=== PATIENT | female | born 1970 | race Two or more races ===

== ENCOUNTER 2016-07-21 19:07 | Emergency (ER) | payer OTHER ==
[~2016-07-21] VITALS: Ht 154.9 cm; Wt 68.0 kg
[~2016-07-21 19:07] MED LIST: LEVO100T PO; METF500T4 PO; OMEP20TA PO
[2016-07-21 19:55] VITALS: BP 123/72
[2016-07-21] MEDS ORDERED: PRED20TA PO (20:48)
[2016-07-21] MEDS ORDERED: BENZ200C39 PO (20:48)
--- NOTE | 2016-07-21 20:48 | PHYS DOC ---
Past Medical History Past Medical History: Diabetes-Type II, Hypothyroid Additional Past Medical Histor: [place]'s disease Past Surgical History: No Surgical History Alcohol Use: None Drug Use: None Adult General Chief Complaint Chief Complaint: COUGH HPI HPI Patient is a 45 year old female presents emergency room with complaint of cough , subjective fevers, nasal congestion for approximately one week. Patient reports that she was treated by her primary care doctor this past week with azithromycin on the secondary illness. She states that it has not helped her upper respiratory symptoms. Patient has any history of heart or lung disease. She states she is a nonsmoker. She denies any ill contacts at home. She denies foreign travel, hospitalization within the past 90 days. Review of Systems Review of Systems Constitutional: Denies fever or chills [] Eyes: Denies change in visual acuity, redness, or eye pain [] HENT: Denies nasal congestion or sore throat [] Respiratory: Denies cough or shortness of breath [] Cardiovascular: No additional information not addressed in HPI [] GI: Denies abdominal pain, nausea, vomiting, bloody stools or diarrhea [] : Denies dysuria or hematuria [] Musculoskeletal: Denies back pain or joint pain [] Integument: Denies rash or skin lesions [] Neurologic: Denies headache, focal weakness or sensory changes [] Endocrine: Denies polyuria or polydipsia [] Allergies Allergies Allergies Coded Allergies Type Severity Reaction Last Updated Verified No Known Drug Allergies 04/26/14 No Physical Exam Physical Exam Constitutional: Well developed, well nourished, no acute distress, non-toxic appearance. [] HENT: Normocephalic, atraumatic, bilateral external ears normal, oropharynx moist, no oral exudates, clear rhinorrhea with boggy nasal mucosa. There is no trismus or hot potato speech. There is no posterior oropharyngeal erythema or swelling. Eyes: PERRLA, EOMI, conjunctiva normal, no discharge. [] Neck: Normal range of motion, no tenderness, supple, no stridor. There is no meningismus. There is bilateral anterior and posterior cervical lymphadenopathy. Cardiovascular:Heart rate regular rhythm, no murmur [] Lungs & Thorax: Bilateral breath sounds clear to auscultation [] Abdomen: Bowel sounds normal, soft, no tenderness, no masses, no pulsatile masses. [] Skin: Warm, dry, no erythema, no rash. [] Back: No tenderness, no CVA tenderness. [] Extremities: No tenderness, no cyanosis, no clubbing, ROM intact, no edema. [] Neurologic: Alert and oriented X 3, normal motor function, normal sensory function, no focal deficits noted. [] Psychologic: Affect normal, judgement normal, mood normal. [] Current Patient Data Vital Signs Vital Signs Date Time Temp Pulse Resp B/P Pulse Ox O2 Delivery O2 Flow Rate FiO2 07/21/16 19:55 98.2 90 18 97 Room Air 98.2 EKG EKG [] Radiology/Procedures Radiology/Procedures [] Course & Med Decision Making Course & Med Decision Making Pertinent Labs and Imaging studies reviewed. (See chart for details) [] Dragon Disclaimer Dragon Disclaimer This electronic medical record was generated, in whole or in part, using a voice recognition dictation system. Departure Departure Impression: Primary Impression: Upper respiratory infection Disposition: HOME, SELF-CARE Condition: GOOD Referrals: WILFREDO HARTMAN MD (PCP) Patient Instructions: Upper Respiratory Infection, Adult, [id number] Additional Instructions: 1. Use suem-[id number] Afrin twice a day for 3 days. 2. Take the medication as prescribed suppress the cough and the steroids to help minimize inflammation in the upper respiratory tract. 3. Follow-up with primary care doctor in 4-5 days if symptoms worsen. Scripts Prednisone 20 Mg Tablet2 Tab PO DAILY #5 TAB Prov:BILLIE CASTELLANOS 07/21/16 Benzonatate 200 Mg Capsule1 Cap PO TID ough #21 CAP Prov:BILLIE CASTELLANOS 07/21/16 BILLIE CASTELLANOS Jul 21, 2016 20:48
== END 2016-07-21 20:55 | disposition home or self-care (01) ==
LOC: ER 19:07
DX: J06.9 Acute upper respiratory infection, unspecified (principal); E03.9 Hypothyroidism, unspecified; E11.9 Type 2 diabetes mellitus without complications; E27.1 Primary adrenocortical insufficiency
CPT/HCPCS: 99283

== ENCOUNTER 2016-10-02 17:53 | Emergency (ER) | payer OTHER ==
[~2016-10-02 17:53] MED LIST changes: +BENZ200C39 PO; +PRED20TA PO
[2016-10-02 18:07] VITALS: BP 122/75
--- NOTE | 2016-10-02 18:41 | PHYS DOC ---
Past Medical History Past Medical History: Diabetes-Type II, Hypothyroid Additional Past Medical Histor: Perkins's disease Past Surgical History: Tubal ligation Alcohol Use: None Drug Use: None Adult General Chief Complaint Chief Complaint: FLANK PAIN [facility] HPI Patient is a 45 year old female presents emergency department with family member who is interpreting. As patient speaks [place]ese only. Patient woke about 5 :00 this morning with right lower pelvic pain that radiates into the lower back area. Patient states she's had burning with frequency of urination. She denies any blood being in the urine. She denies any fever, chills or any nausea vomiting. She did state she took ibuprofen 9:00 this morning which helped with her back pain and discomfort. She also states that she has some white vaginal discharge that is cottage cheese type. Review of Systems Review of Systems Constitutional: Denies fever or chills [] Eyes: Denies change in visual acuity, redness, or eye pain [] HENT: Denies nasal congestion or sore throat [] Respiratory: Denies cough or shortness of breath [] Cardiovascular: No additional information not addressed in HPI [] GI: Denies abdominal pain, nausea, vomiting, bloody stools or diarrhea [] : dysuria denies hematuria [] Musculoskeletal: Denies back pain or joint pain [] Integument: Denies rash or skin lesions [] Neurologic: Denies headache, focal weakness or sensory changes [] Allergies Allergies Allergies Coded Allergies Type Severity Reaction Last Updated Verified No Known Drug Allergies 04/26/14 No Physical Exam Physical Exam Constitutional: Well developed, well nourished, no acute distress, non-toxic appearance. [] HENT: Normocephalic, atraumatic, bilateral external ears normal, oropharynx moist, no oral exudates, nose normal. [] Eyes: PERRLA, EOMI, conjunctiva normal, no discharge. [] Neck: Normal range of motion, no tenderness, supple, no stridor. [] Cardiovascular:Heart rate regular rhythm, no murmur [] Lungs & Thorax: Bilateral breath sounds clear to auscultation []] Skin: Warm, dry, no erythema, no rash. [] Back: right lower back tenderness, no CVA tenderness. [] Extremities: No tenderness, no cyanosis, no clubbing, ROM intact, no edema. [] Neurologic: Alert and oriented X 3, normal motor function, normal sensory function, no focal deficits noted. [] Psychologic: Affect normal, judgement normal, mood normal. [] Vaginal exam: Speculum exam patient with thick yellow discharge with odor noted. Manual exam patient with no adnexal tenderness noted no CMT noted Current Patient Data Vital Signs Vital Signs Date Time Temp Pulse Resp B/P Pulse Ox O2 Delivery O2 Flow Rate FiO2 10/02/16 18:07 97.5 85 18 122/75 97 Room Air 97.5 Lab Values Laboratory Tests Test 10/02/16 17:36 10/02/16 18:20 POC Urine HCG, Qualitative Hcg negative (Negative) Urine Collection Type Unknown Urine Color Yellow Urine Clarity Cloudy Urine pH 7.5 Urine Specific [place] 1.010 Urine Protein Negativemg/dL (NEG-TRACE) Urine Glucose (UA) Negativemg/dL (NEG) Urine Ketones (Stick) Negativemg/dL (NEG) Urine Blood Negative (NEG) Urine Nitrite Negative (NEG) Urine Bilirubin Negative (NEG) Urine Urobilinogen Dipstick 1.0mg/dL (0.2 mg/dL) Urine Leukocyte Esterase Negative (NEG) Urine RBC 0/HPF (0-2) Urine WBC 0/HPF (0-4) Urine Squamous Epithelial Cells Mod/LPF Urine Bacteria Few/HPF (0-FEW) Microbiology 10/02/16 Wet Prep - Final, Complete EKG EKG [] Radiology/Procedures Radiology/Procedures [] Course & Med Decision Making Course & Med Decision Making Pertinent Labs and Imaging studies reviewed. (See chart for details) Urinalysis was negative for you to urinary tract infection. Wet prep was positive for bacterial vaginosis. Patient will be provided with Flagyl 500 mg twice day for the next 7 days. Since she was having dysuria she will be provided with Macrobid. Recommended plenty of fluids such as water and cranberry juice. Also recommended her to avoid coverages cocktail carbonate beverages citrus fruits caffeine and alcohol disease are all considered irritants to the bladder. Patient will be discharged home in stable condition since symptoms to return back to emergency department as been provided. Instructions treatment regimens and follow-up recommendations. All discharge instructions was provided through plant operator helper at bedside. [] Dragon Disclaimer Dragon Disclaimer This electronic medical record was generated, in whole or in part, using a voice recognition dictation system. Departure Departure Impression: Primary Impression: Bacterial vaginosis Additional Impression: Dysuria Disposition: 01 HOME, SELF-CARE Condition: STABLE Referrals: WILFREDO HARTMAN MD (PCP) Patient Instructions: Bacterial Vaginosis, Knbe-[id number]-Pwdx, Dysuria-Brief Additional Instructions: Urinalysis was negative for any urinary tract infection although since your having signs and symptoms of urinary frequency and pain with urination he we will be treated for a bacterial infection. You've also been treated for a bacterial vaginosis. You have also been tested for sexually transmitted infections. These results will be back in 3-4 days. If they are positive we will contact you by phone. Medication as prescribed. Drink plenty of fluids such as water and cranberry juice. Avoid cranberry juice cocktail carbonate beverages citrus fruits alcohol and caffeine as these are considered irritants to the bladder. Follow-up to primary care physician next 7-10 days. Return back to emergency prior signs symptoms of become worse. Scripts Metronidazole (Flagyl)500 Mg Tablet1 Tab PO BID #14 TAB Prov:STACY MARTIN APRN 10/02/16 Nitrofurantoin Monohyd/M-Cryst (Macrobid 100 Mg Capsule)100 Mg Capsule1 Cap PO BID #14 CAP Prov:STACY MARTIN APRN 10/02/16 Problem Qualifiers STACY MARTIN APRN Oct 02, 2016 18:41
[2016-10-02 18:46] LABS: BILIRUBIN,URINE NEGATIVE (NEG); GLUCOSE,URINE NEGATIVE (NEG); NITRITE,URINE NEGATIVE (NEG); PH,URINE 7.5; PROTEIN,URINE NEGATIVE (NEG-TRACE)
[2016-10-02 19:01] LABS: BACTERIA,URINE FEW /HPF (0-FEW); RBC,URINE 0 /HPF (0-2); SQUAMOUS EPITHELIAL CELL,UR MOD /LPF; WBC,URINE 0 /HPF (0-4)
[2016-10-02] MEDS ORDERED: NITR100C62 PO (19:50)
[2016-10-02] MEDS ORDERED: METR500T PO (19:50)
== END 2016-10-02 19:52 | disposition home or self-care (01) ==
LOC: ER 17:53
DX: N76.0 Acute vaginitis (principal); R30.0 Dysuria; M54.5 Low back pain; E11.9 Type 2 diabetes mellitus without complications; E03.9 Hypothyroidism, unspecified; N89.8 Other specified noninflammatory disorders of vagina
CPT/HCPCS: 81001; 84703; 87491; 87591; 99284; Q0111; 81025

== ENCOUNTER → 2016-10-16 | Outpatient (CLI) | payer OTHER ==
[2016-10-02 18:07] VITALS: BP 122/75
[~2016-10-16] MED LIST changes: +METR500T PO; +NITR100C62 PO
--- NOTE | 2016-10-16 07:32 | RAD ---
Indication: Pelvic pain. Transabdominal pelvic sonography was performed. The uterus measures 8.7 x 6.4 x 5.0 cm. Endometrium is 4 mm in thickness. No uterine mass is identified. The right ovary measures 3.3 x 2.4 x 1.5 cm and the left ovary measures 3.6 x 2.2 x 1.8 cm. There is blood flow to both ovaries. No adnexal mass or free fluid is seen. Impression: Unremarkable pelvic ultrasound.
== END | disposition home or self-care (01) ==
LOC: US 06:41
PROVIDERS: ATTEND Family Medicine
DX: R10.2 Pelvic and perineal pain (principal)
CPT/HCPCS: 76856

== ENCOUNTER 2017-01-30 19:40 | Emergency (ER) | payer OTHER ==
[~2017-01-30] VITALS: Ht 154.9 cm; Wt 71.7 kg
[~2017-01-30 19:40] MED LIST changes: -BENZ200C39 PO; +BENZ200C47 PO; -OMEP20TA PO; +OMEP20TA8 PO
[2017-01-30] MEDS ORDERED: IV NORMAL SALINE 1000ML BAG 1,000 ML IV SCH (20:14)
[2017-01-30] MEDS ORDERED: FAMOTIDINE 20 MG/2 ML VIAL IVP ONE (20:15)
[2017-01-30] MEDS ORDERED: LIDO:MAALOX:DONNATAL 1:1:1 15 ML SINGLE DOSE SWSW ONE (20:15)
--- NOTE | 2017-01-30 20:20 | PHYS DOC ---
Past Medical History Past Medical History: Diabetes-Type II, Hypothyroid Additional Past Medical Histor: [place]'s disease Past Surgical History: Tubal ligation Alcohol Use: None Drug Use: None Adult General Chief Complaint Chief Complaint: ABDOMINAL PAIN HPI HPI Patient is a 46 year old female who presents with complaint of abdominal pain. Patient states that her symptoms have been present the past 2-3 days. Patient states her symptoms have been intermittent, however over the past 24 hours a become more constant. Patient states that her location of pain is in the upper portion of her abdomen and radiates up towards the middle of her chest. Patient states she has had similar symptoms in the past associated with heartburn. Patient took Prilosec at home with no relief in symptoms. Patient denies any other associated symptoms. Patient rates her pain currently as 9 out of 10. Due to persistence of symptoms the patient came to the emergency department for further evaluation. Review of Systems Review of Systems Constitutional: Denies fever or chills [] Eyes: Denies change in visual acuity, redness, or eye pain [] HENT: Denies nasal congestion or sore throat [] Respiratory: Denies cough or shortness of breath [] Cardiovascular: No additional information not addressed in HPI [] GI: Denies abdominal pain, nausea, vomiting, bloody stools or diarrhea [] : Denies dysuria or hematuria [] Musculoskeletal: Denies back pain or joint pain [] Integument: Denies rash or skin lesions [] Neurologic: Denies headache, focal weakness or sensory changes [] Endocrine: Denies polyuria or polydipsia [] Current Medications Current Medications Current Medications Medications (Trade) Dose Ordered Sig/Cherri Start Time Stop Time Status Last Admin Dose Admin Famotidine (Pepcid) 20 mg 1X ONCE 01/30/17 20:15 01/30/17 20:23 DC 01/30/17 20:28 20 MG Multi-Ingredient Mouthwash/Gargle (Gi Cocktail Single Dose) 15 ml 1X ONCE 01/30/17 20:15 01/30/17 20:23 DC 01/30/17 20:28 15 ML Sodium Chloride 1,000 ml @ 1,000 mls/hr Q1H 01/30/17 20:14 01/30/17 21:13 01/30/17 20:27 1,000 MLS/HR Allergies Allergies Allergies Coded Allergies Type Severity Reaction Last Updated Verified No Known Drug Allergies 11/17/14 No Physical Exam Physical Exam Constitutional: Alert, afebrile, appears in mild to moderate discomfort. [] HENT: Normocephalic, atraumatic, bilateral external ears normal, oropharynx moist, no oral exudates, nose normal. [] Eyes: PERRLA, EOMI, conjunctiva normal, no discharge. [] Neck: Normal range of motion, no tenderness, supple, no stridor. [] Cardiovascular:Heart rate regular rhythm, no murmur [] Lungs & Thorax: Bilateral breath sounds clear to auscultation [] Abdomen: Bowel sounds normal, soft, epigastric tenderness to palpation with no guarding or rebound tenderness, no masses, no pulsatile masses. [] Skin: Warm, dry, no erythema, no rash. [] Back: No tenderness, no CVA tenderness. [] Extremities: No tenderness, no cyanosis, no clubbing, ROM intact, no edema. [] Neurologic: Alert and oriented X 3, normal motor function, normal sensory function, no focal deficits noted. [] Current Patient Data Vital Signs Vital Signs Date Time Temp Pulse Resp B/P (MAP) Pulse Ox O2 Delivery O2 Flow Rate FiO2 01/30/17 19:49 98.2 88 18 145/67 (93) 99 Room Air 98.2 Lab Values Laboratory Tests Test 01/30/17 19:02 01/30/17 19:47 01/30/17 19:50 POC Urine HCG, Qualitative Hcg negative (Negative) Urine Collection Type Unknown Urine Color Yellow Urine Clarity Clear Urine pH 5.5 Urine Specific [place] 1.015 Urine Protein Negative mg/dL (NEG-TRACE) Urine Glucose (UA) Negative mg/dL (NEG) Urine Ketones (Stick) Negative mg/dL (NEG) Urine Blood Negative (NEG) Urine Nitrite Negative (NEG) Urine Bilirubin Negative (NEG) Urine Urobilinogen Dipstick 0.2 mg/dL (0.2 mg/dL) Urine Leukocyte Esterase Negative (NEG) Urine RBC 0 /HPF (0-2) Urine WBC Occ /HPF (0-4) Urine Squamous Epithelial Cells Mod /LPF Urine Bacteria Few /HPF (0-FEW) Urine Mucus Mod /LPF White Blood Count 10.8 x10^3/uL (4.0-11.0) Red Blood Count 4.47 x10^6/uL (3.50-5.40) Hemoglobin 12.7 g/dL (12.0-15.5) Hematocrit 38.7 % (36.0-47.0) Mean Corpuscular Volume 87 fL (79-100) Mean Corpuscular Hemoglobin 29 pg (25-35) Mean Corpuscular Hemoglobin Concent 33 g/dL (31-37) Red Cell Distribution Width 14.6 % (11.5-14.5) H Platelet Count 346 x10^3/uL (140-400) Neutrophils (%) (Auto) 48 % (31-73) Lymphocytes (%) (Auto) 36 % (24-48) Monocytes (%) (Auto) 10 % (0-9) H Eosinophils (%) (Auto) 5 % (0-3) H Basophils (%) (Auto) 1 % (0-3) Neutrophils # (Auto) 5.2 x10^3uL (1.8-7.7) Lymphocytes # (Auto) 3.9 x10^3/uL (1.0-4.8) Monocytes # (Auto) 1.0 x10^3/uL (0.0-1.1) Eosinophils # (Auto) 0.5 x10^3/uL (0.0-0.7) Basophils # (Auto) 0.1 x10^3/uL (0.0-0.2) Sodium Level 136 mmol/L (136-145) Potassium Level 3.9 mmol/L (3.5-5.1) Chloride Level 100 mmol/L (98-107) Carbon Dioxide Level 28 mmol/L (21-32) Anion Gap 8 (6-14) Blood Urea Nitrogen 13 mg/dL (7-20) Creatinine 0.9 mg/dL (0.6-1.0) Estimated GFR (Cockcroft-Gault) 66.8 BUN/Creatinine Ratio 14 (6-20) Glucose Level 111 mg/dL (70-99) H Calcium Level 8.7 mg/dL (8.5-10.1) Total Bilirubin 0.2 mg/dL (0.2-1.0) Aspartate Amino Transferase (AST) 19 U/L (15-37) Alanine Aminotransferase (ALT) 28 U/L (14-59) Alkaline Phosphatase 92 U/L (46-116) Total Protein 7.4 g/dL (6.4-8.2) Albumin 4.0 g/dL (3.4-5.0) Albumin/Globulin Ratio 1.2 (1.0-1.7) Lipase 214 U/L (73-393) Laboratory Tests 01/30/17 19:50 Laboratory Tests 01/30/17 19:50 EKG EKG Interpreted by me: Heart rate 85, sinus rhythm, normal intervals, normal axis, no acute ST/T-wave abnormalities present [] Radiology/Procedures Radiology/Procedures Not performed [] Course & Med Decision Making Course & Med Decision Making Pertinent Labs and Imaging studies reviewed. (See chart for details) The patient was given IV fluids and GI cocktail in the emergency department. On reevaluation, patient states that her symptoms have resolved at this time. The patient's lab work appears stable with no evidence of acute pathology at this time. I suspect that the patient's symptoms are likely due to worsening gastritis though possible peptic ulcer remains on the differential diagnosis. The patient will be started on Carafate to aid with symptomatic relief and advised patient follow-up with her GI specialist in the next 1-2 weeks for reevaluation. Advised return emergency department for any worsening symptoms. Patient voiced understanding and in agreement with treatment plan. Dragon Disclaimer Dragon Disclaimer This electronic medical record was generated, in whole or in part, using a voice recognition dictation system. Departure Departure Impression: Primary Impression: Abdominal pain Disposition: 01 HOME, SELF-CARE Condition: IMPROVED Referrals: WILFREDO HARTMAN MD (PCP) Patient Instructions: Abdominal Pain Additional Instructions: Follow-up with your electrical fitter in the next 1-2 weeks for reevaluation. Return to the emergency department for any worsening symptoms. Scripts Sucralfate (CARAFATE) 1 Gm Tablet 1 TAB PO QID, #120 TAB 0 Refills Prov: ROSLYN CATALAN MD 01/30/17 Problem Qualifiers Primary Impression: Abdominal pain Abdominal location: epigastric Qualified Codes: R10.13 - Epigastric pain ROSLYN CATALAN MD Jan 30, 2017 20:20
[2017-01-30 20:32] LABS: BASO # 0.1 x10^3/uL (0.0-0.2); BASO % 1 % (0-3); EOS % 5 % (0-3); HEMATOCRIT 38.7 % (36.0-47.0); HEMOGLOBIN 12.7 g/dL (12.0-15.5); LYMPH # 3.9 x10^3/uL (1.0-4.8); LYMPH % 36 % (24-48); MEAN CORPUSCULAR HEMOGLOBIN 29 pg (25-35); MEAN CORPUSCULAR HGB CONC 33 g/dL (31-37); MEAN CORPUSCULAR VOLUME 87 fL (79-100); MONO % 10 % (0-9); NEUT % 48 % (31-73); PLATELET COUNT 346 x10^3/uL (140-400); RED BLOOD COUNT 4.47 x10^6/uL (3.50-5.40); RED CELL DISTRIBUTION WIDTH 14.6 % (11.5-14.5); WHITE BLOOD COUNT 10.8 x10^3/uL (4.0-11.0)
[2017-01-30 20:33] LABS: BILIRUBIN,URINE NEGATIVE (NEG); GLUCOSE,URINE NEGATIVE (NEG); NITRITE,URINE NEGATIVE (NEG); PH,URINE 5.5; PROTEIN,URINE NEGATIVE (NEG-TRACE); UROBILINOGEN,URINE 0.2 mg/dL (0.2 mg/dL)
[2017-01-30 20:37] LABS: BACTERIA,URINE FEW /HPF (0-FEW); RBC,URINE 0 /HPF (0-2); WBC,URINE OCC /HPF (0-4)
[2017-01-30 20:38] LABS: SQUAMOUS EPITHELIAL CELL,UR MOD /LPF
[2017-01-30 20:42] LABS: CALCIUM 8.7 mg/dL (8.5-10.1); CREATININE 0.9 mg/dL (0.6-1.0); GFR 66.8; POTASSIUM 3.9 mmol/L (3.5-5.1)
[2017-01-30 20:49] LABS: ALBUMIN/GLOBULIN RATIO 1.2 (1.0-1.7); TOTAL BILIRUBIN 0.2 mg/dL (0.2-1.0); TOTAL PROTEIN 7.4 g/dL (6.4-8.2)
[2017-01-30 21:00] VITALS: BP 114/58
[2017-01-30] MEDS ORDERED: SUCR1TAB35 PO (21:11)
--- NOTE | 2017-01-31 07:03 | EKG ---
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
== END 2017-01-30 21:23 | disposition home or self-care (01) ==
LOC: ER 19:40
DX: R10.13 Epigastric pain (principal); E11.9 Type 2 diabetes mellitus without complications; E03.9 Hypothyroidism, unspecified
CPT/HCPCS: 36415; 80053; 81001; 81025; 83690; 85025; 93005; 96361; 96374; 99285; J7030; S0028

== ENCOUNTER 2017-07-23 22:49 | Emergency (ER) | payer OTHER ==
[2017-07-24 00:48] LABS: INFLUENZA A PATIENT POSITIVE (NEGATIVE); INFLUENZA B PATIENT NEGATIVE (NEGATIVE); OBC FLU VALID
== END 2017-07-24 01:00 | disposition home or self-care (01) ==
LOC: ER 22:49
DX: J09.X2 Influenza due to identified novel influenza A virus with other respiratory manifestations (principal); J06.9 Acute upper respiratory infection, unspecified; J45.909 Unspecified asthma, uncomplicated; E03.9 Hypothyroidism, unspecified
CPT/HCPCS: 87804; 87804-59; 99284

== ENCOUNTER 2018-06-18 | Emergency (ER) | payer OTHER ==
[~2018-06-18] VITALS: Ht 154.9 cm; Wt 64.9 kg
[~2018-06-18] MED LIST changes: +BENZ100C PO; +LIDO30CR TP; +METF500T16 PO; -METF500T4 PO; +OSEL75CA PO; +PRED50TA PO; +PSEU120T58 PO; +SUCR1TAB35 PO; +TRAM50TA PO; +VENTOLIN HFA18 GM INH
[2018-06-18 00:10] VITALS: BP 142/67
[2018-06-18] MEDS ORDERED: oxyCODONE/APAP 10/325 1 TAB TABLET PO ONE (01:00)
[2018-06-18] MEDS ORDERED: CEPH-264 PO (01:31)
[2018-06-18] MEDS ORDERED: PROVENTIL HFA6.7 G2 INH (01:31)
[2018-06-18] MEDS ORDERED: PRED50TA PO (01:31)
--- NOTE | 2018-06-18 01:47 | RAD ---
PA and lateral chest. HISTORY: Chest pain PA and lateral views were taken of the chest. Heart is normal in size. There is no pleural effusion. Lungs are clear. IMPRESSION: 1. No acute chest disease. Electronically signed by: Monty Mullins MD (06/18/2018 1:42 AM) [facility]
[2018-06-18] MEDS ORDERED: HYDR-3135 PO (01:59)
[2018-06-18] MEDS ORDERED: IPRATRPIUM/ALBUTEROL 0.5/2.5MG 3 ML NEBU. NEB ONE (02:00)
[2018-06-18] MEDS ORDERED: predniSONE 10 MG TABLET PO ONE (02:00)
--- NOTE | 2018-06-18 21:53 | PHYS DOC ---
Past Medical History Past Medical History: Diabetes-Type II, Hypothyroid, Other Additional Past Medical Histor: [place]'S Past Surgical History: Tubal ligation Alcohol Use: Rarely Drug Use: None Adult General Chief Complaint Chief Complaint: Congestion HPI HPI Patient is a 47 year old female presents with fever, nasal congestion, cough, and shortness of air. Patient has history of asthma. No nausea vomiting or sweats. She is been using her inhaler at home with some relief. Patient was evaluated by her PCP earlier today instructed to take Tylenol. Symptom onset was 2 days ago. Additional history obtained from the patient's who is at bedside. [] Review of Systems Review of Systems Review symptoms as per history of present illness. All other review symptoms are negative. All other systems were reviewed and found to be within normal limits, except as documented in this note. Current Medications Current Medications Current Medications Medications (Trade) Dose Ordered Sig/Cherri Start Time Stop Time Status Last Admin Dose Admin Albuterol/ Ipratropium (Duoneb) 3 ml 1X ONCE 06/18/18 02:00 06/18/18 02:01 DC 06/18/18 01:40 3 ML Oxycodone/ Acetaminophen (Percocet 10/325) 1 tab 1X ONCE 06/18/18 01:00 06/18/18 01:01 DC 06/18/18 00:48 1 TAB Prednisone (Prednisone) 50 mg 1X ONCE 06/18/18 02:00 06/18/18 02:01 DC 06/18/18 01:35 50 MG Allergies Allergies Allergies Coded Allergies Type Severity Reaction Last Updated Verified No Known Drug Allergies 04/26/14 No Physical Exam Physical Exam Constitutional: Well developed, well nourished, no acute distress, non-toxic appearance. [] HENT: Normocephalic, atraumatic, bilateral external ears normal, oropharynx moist, no oral exudates, nose come and nasal congestion, rhinorrhea.[] Eyes: PERRLA, EOMI, conjunctiva normal, no discharge. [] Neck: Normal range of motion, no tenderness, supple, no stridor. [] Cardiovascular:Heart rate regular rhythm, no murmur [] Lungs & Thorax: Respirations nonlabored, coarse diminished breath sounds bilaterally, occasional expiratory wheeze, no rales.[] Abdomen: Bowel sounds normal, soft, no tenderness, no masses, no pulsatile masses. [] Skin: Warm, dry, no erythema, no rash. [] Back: No tenderness, no CVA tenderness. [] Extremities: No tenderness, no edema. [] Neurologic: Alert and oriented X 3, normal motor function, normal sensory function, no focal deficits noted. [] Psychologic: Affect normal, judgement normal, mood normal. [] Current Patient Data Vital Signs Vital Signs Date Time Temp Pulse Resp B/P (MAP) Pulse Ox O2 Delivery O2 Flow Rate FiO2 06/18/18 01:40 97 Room Air 06/18/18 00:10 98.9 98 20 142/67 (92) 98.9 EKG EKG [] Radiology/Procedures Radiology/Procedures [Chest x-ray: No acute cardiopulmonary disease on preliminary ED review.] Course & Med Decision Making Course & Med Decision Making Pertinent Labs and Imaging studies reviewed. (See chart for details) [Flulike illness with mild persistent asthma exacerbation] Dragon Disclaimer Dragon Disclaimer This electronic medical record was generated, in whole or in part, using a voice recognition dictation system. Departure Departure Impression: Primary Impression: Asthma exacerbation Additional Impression: Acute bronchitis Disposition: HOME, SELF-CARE Condition: GOOD Patient Instructions: Bronchitis, [id number], Asthma, Acute Bronchospasm Additional Instructions: You were evaluated in the emergency department for chest pain and fever. Your exam is consistent with bronchitis with asthma exacerbation. Please take anti- biotics, steroids as directed and use inhaler as needed. Follow-up with your PCP in 2-3 days for reevaluation. Return to the ED if new or worsening symptoms. Scripts Hydrocodone/Apap 10-325 (NORCO 10-325 TABLET) 1 Each Tablet 1 TAB PO Q8HRS PRN for PAIN MDD 6, #10 TAB 0 Refills Prov: ALEXA MERINO DO 06/18/18 Albuterol Sulfate (Proventil Hfa) 6.7 Gm Hfa.aer.ad 1 PUFF INH PRN Q6HRS PRN for SHORTNESS OF BREATH for 1 Day, INHALER Prov: ALEXA MERINO DO 06/18/18 Cephalexin (KEFLEX) 500 Mg Capsule 1 CAP PO TID, #21 CAP Prov: ALEXA MERINO DO 06/18/18 Prednisone (PREDNISONE) 50 Mg Tablet 1 TAB PO DAILY, #5 TAB Prov: ALEXA MERINO DO 06/18/18 Problem Qualifiers ALEXA MERINO DO Jun 18, 2018 21:53
== END 2018-06-18 02:00 | disposition home or self-care (01) ==
LOC: ER
DX: J45.901 Unspecified asthma with (acute) exacerbation (principal); J20.9 Acute bronchitis, unspecified; E03.9 Hypothyroidism, unspecified; E11.9 Type 2 diabetes mellitus without complications
CPT/HCPCS: 71046; 94640; 99283; J7512; J7620

== ENCOUNTER 2019-07-27 22:11 | Emergency (ER) | payer OTHER ==
[~2019-07-27] VITALS: Ht 154.9 cm; Wt 65.9 kg
[~2019-07-27 22:11] MED LIST changes: +CEPH-264 PO; +HYDR-3135 PO; +PROVENTIL HFA6.7 G2 INH
[2019-07-27] MEDS ORDERED: METR-34 PO (23:14)
--- NOTE | 2019-07-27 23:14 | PHYS DOC ---
Past Medical History Past Medical History: Diabetes-Type II, Hypothyroid, Other Additional Past Medical Histor: L[facility] Past Surgical History: Tubal ligation Smoking Status: Never Smoker Alcohol Use: Rarely Drug Use: None Adult General Chief Complaint Chief Complaint: VAGINAL PROBLEM HPI HPI Patient is a 48 year old female, accompanied by her daughter, who presents to the emergency department with complaints of yellow to white thick vaginal discharge that began about a week ago. She states that 3 days ago she took 150 mg fluconazole tablet because she thought she had a yeast infection. Patient states that the symptoms did not change at all after taking that medication. She denies any abdominal pain, nausea, vomiting, diarrhea, back pain, dysuria, increased urinary frequency, hematuria, fever, cough, or shortness of breath. Patient denies any concerns of a sexually transmitted infection. She states that her vaginal area has been intensely itchy, she denies any abnormal odor. She currently denies any pain.[] Review of Systems Review of Systems All other systems were reviewed and found to be within normal limits, except as documented in this note. Allergies Allergies Allergies Coded Allergies Type Severity Reaction Last Updated Verified No Known Drug Allergies 04/26/14 No Physical Exam Physical Exam Constitutional: Well developed, well nourished, no acute distress, non-toxic appearance. [] HENT: Normocephalic, atraumatic, bilateral external ears normal, oropharynx moist, no oral exudates, nose normal. [] Eyes: PERRLA, EOMI, conjunctiva normal, no discharge. [] Neck: Normal range of motion, no tenderness, supple, no stridor. [] Cardiovascular:Heart rate regular rhythm, no murmur [] Lungs & Thorax: Bilateral breath sounds clear to auscultation [] Pelvic Exam: Ethylbenzene Cracking Supervisor present Ana MENDOZA Abdomen: Nontender, soft External Genitalia: Normal Skin Speculum: Normal vaginal mucosa, normal cervical discharge; thick white discharge present in vaginal vault Bimanual: No adnexal masses or tenderness, No CMT Skin: Warm, dry, no erythema, no rash. [] Extremities: No cyanosis, ROM intact Neurologic: Alert and oriented X 3, no focal deficits noted. [] Psychologic: Affect normal, judgement normal, mood normal. [] Current Patient Data Vital Signs Vital Signs Date Time Temp Pulse Resp B/P (MAP) Pulse Ox O2 Delivery O2 Flow Rate FiO2 07/27/19 22:30 98.0 81 18 121/58 (79) 97 Room Air 98.0 Lab Values Microbiology 07/27/19 Wet Prep - Final, Complete EKG EKG [] Radiology/Procedures Radiology/Procedures [] Course & Med Decision Making Course & Med Decision Making Pertinent Labs and Imaging studies reviewed. (See chart for details) [] Dragon Disclaimer Dragon Disclaimer This electronic medical record was generated, in whole or in part, using a voice recognition dictation system. Departure Departure Impression: Primary Impression: Bacterial vaginosis Disposition: HOME, SELF-CARE Condition: STABLE Referrals: WILFREDO HARTMAN MD (PCP) Patient Instructions: Bacterial Vaginosis, [id number] Additional Instructions: Fill the prescription and use it as directed. Follow-up with your primary care doctor or Dr. Xavier for reevaluation. Return to the ER if symptoms worsen. Scripts Metronidazole (METRONIDAZOLE) 500 Mg Tablet 1 TAB PO BID for 7 Days, #14 TAB 0 Refills Prov: CROW SANTIAGO APRN 07/27/19 CROW SANTIAGO APRN Jul 27, 2019 23:14
[2019-07-27 23:35] VITALS: BP 127/81
[2019-07-29 19:09] LABS: GC PROBE Negative (Negative)
== END 2019-07-27 23:35 | disposition home or self-care (01) ==
LOC: ER 22:11
DX: N76.0 Acute vaginitis (principal); B96.89 Other specified bacterial agents as the cause of diseases classified elsewhere; E03.9 Hypothyroidism, unspecified; E11.9 Type 2 diabetes mellitus without complications; Z98.51 Tubal ligation status
CPT/HCPCS: 87491; 87591; 99284; Q0111

== ENCOUNTER 2021-05-08 21:03 | Emergency (ER) | payer OTHER ==
[~2021-05-08] VITALS: Ht 154.9 cm; Wt 65.9 kg
[~2021-05-08 21:03] MED LIST changes: +LEVO-101 PO; -LEVO100T PO; -LIDO30CR TP; +LIDO30CR2 TP; +METR-34 PO
[2021-05-08] MEDS ORDERED: guaiFENesin/CODEINE 100mg/10mg 5 ML LIQUID PO STA (22:27)
[2021-05-08] MEDS ORDERED: predniSONE 10 MG TABLET PO ONE (22:30)
--- NOTE | 2021-05-08 22:50 | PHYS DOC ---
Past Medical History Past Medical History: Diabetes-Type II, Hypothyroid, Other Additional Past Medical Histor: LOUIS'S (LANDEN MONTELONGO Benjamin RIVET TOSSER) Past Surgical History: Tubal ligation (LANDEN MONTELONGO Benjamin RIVET TOSSER) Smoking Status: Never Smoker Alcohol Use: None Drug Use: None (LANDEN MONTLEONGO RIVET TOSSER) General Adult EDM: Chief Complaint: SHORTNESS OF BREATH HPI: HPI: Patient is a 50 year old female with a history of diabetes type 2 who presents to the ED today complaining of shortness of breath from asthma, symptoms have been going on for 1 week. Patient denies any fever. Denies any chest pain. Reports being seen at [facility] 1 week ago, she states they did a Covid test which was negative. She states she received Covid [employer] vaccine last dose of September 2020. (LANDEN MONTELONGO RIVET TOSSER) Review of Systems: Review of Systems: Constitutional: Denies fever or chills. [] Eyes: Denies change in visual acuity. [] HENT: Denies nasal congestion or sore throat. [] Respiratory: Reports cough and shortness of breath. [] Cardiovascular: Denies chest pain or edema. [] GI: Denies abdominal pain, nausea, vomiting, bloody stools or diarrhea. [] : Denies dysuria. [] Musculoskeletal: Denies back pain or joint pain. [] Integument: Denies rash. [] Neurologic: Denies headache, focal weakness or sensory changes. [] Psychiatric: Denies depression or anxiety. [] (LANDEN MONTELONGO Benjamin RIVET TOSSER) Heart Score: C/O Chest Pain: N/A Risk Factors: Risk Factors: DM, Current or recent (<one month) smoker, HTN, HLP, family history of CAD, obesity. Risk Scores: Score 0 - 3: 2.5% MACE over next 6 weeks - Discharge Home Score 4 - 6: 20.3% MACE over next 6 weeks - Admit for Clinical Observation Score 7 - 10: 72.7% MACE over next 6 weeks - Early Invasive Strategies (LANDEN MONTELONGO Benjamin RIVET TOSSER) Current Medications: Current Medications Medications (Trade) Dose Ordered Sig/Cherri Start Time Stop Time Status Last Admin Dose Admin Guaifenesin/ Codeine Phosphate (Robitussin Ac) 5 ml 1X STAT 05/08/21 22:27 05/08/21 22:29 DC 05/08/21 22:40 5 ML Prednisone (Prednisone) 50 mg 1X ONCE 05/08/21 22:30 05/08/21 22:31 DC 05/08/21 22:40 50 MG (JAYDALANDEN Benjamin RIVET TOSSER) Allergies: Allergies: Allergies Coded Allergies Type Severity Reaction Last Updated Verified No Known Drug Allergies 04/26/14 No (JAYDALANDEN Benjamin RIVET TOSSER) Physical Exam: PE: Constitutional: Well developed, well nourished, no acute distress, non-toxic appearance. [] HENT: Normocephalic, atraumatic, bilateral external ears normal, oropharynx moist, no oral exudates, nose normal. [] Eyes: PERRLA, EOMI, conjunctiva normal, no discharge. [] Neck: Normal range of motion, no tenderness, supple, no stridor. [] Cardiovascular:Heart rate regular rhythm, no murmur [] Lungs & Thorax: Bilateral breath sounds clear to auscultation [] Abdomen: Bowel sounds normal, soft, no tenderness, no masses, no pulsatile masses. [] Skin: Warm, dry, no erythema, no rash. [] Back: No tenderness, no CVA tenderness. [] Extremities: No tenderness, no cyanosis, no clubbing, ROM intact, no edema. [] Neurologic: Alert and oriented X 3, normal motor function, normal sensory function, no focal deficits noted. [] Psychologic: Affect normal, judgement normal, mood normal. [] (LANDEN MONTELONGO RIVET TOSSER) Current Patient Data: Vital Signs: Vital Signs Date Time Temp Pulse Resp B/P (MAP) Pulse Ox O2 Delivery O2 Flow Rate FiO2 05/08/21 21:53 97.9 84 20 132/72 (92) 99 Room Air 97.9 (LENYAbiLANDEN Benjamin RIVET TOSSER) EKG: EKG: [] (LANDEN MONTELONGO RIVET TOSSER) Radiology/Procedures: Radiology/Procedures: []PROCEDURE: CHEST AP ONLY EXAM: XR CHEST 1V 05/08/2021 11:03 PM CLINICAL INDICATION: Cough COMPARISON: Chest radiograph 06/18/2016 TECHNIQUE: AP upright view of the chest FINDINGS: The heart is normal in size. Lungs are well-expanded. There is a possible 1.7 cm right perihilar nodule versus prominent vessel in the right hilum. The lungs are otherwise clear. No pleural effusion or pneumothorax. No acute osseous abnormality. IMPRESSION: 1. No evidence of pneumonia. 2. Possible 1.7 cm nodule versus prominent vessel in the right hilum. CT could be obtained to further evaluate if indicated. Electronically signed by: Anastasia Johnson MD (05/08/2021 11:32 PM) [facility] DICTATED and SIGNED BY: ANASTASIA JOHNSON MD DATE: 05/08/21 [id number] (LANDEN MONTELONGO APRN) Course & Med Decision Making: Course & Med Decision Making Pertinent Labs and Imaging studies reviewed. (See chart for details) This is a 50-year-old female patient presented to the ED today complaining of cough, shortness of breath due to her asthma, symptoms for 1 week. Was seen at [facility] a week ago and had a negative Covid test. Arrives in the ED with O2 sats at 99% on room air, temperature 97.9. Chest x-ray negative for pneumonia, noted for possible 1.7 cm nodule versus prominent vessel in the right hilum. CT could be obtained to further evaluate if indicated. Patient has good follow-up with her PCP. Recommended she follows up for this possible lung nodule Discharge to home. (LANDEN MONTELONGO APRN) Course & Med Decision Making Patients Care and treatment plan provided by ER Nurse Practitioner. I was available for consult. Patient's chart reviewed. (ESPERANZA ROGERS DO) Violetaon Disclaimer: Dragmaricel Disclaimer: This electronic medical record was generated, in whole or in part, using a voice recognition dictation system. (LANDEN MONTELONGO APRN) Departure Departure Impression: Primary Impression: Asthma exacerbation Qualified Codes: J45.21 - Mild intermittent asthma with (acute) exacerbation Additional Impression: Lung nodule Disposition: 01 HOME / SELF CARE / HOMELESS Condition: STABLE Referrals: WILFERDO HARTMAN MD (PCP) Follow-up with your doctor in 1 week Patient Instructions: Asthma, Adult, [id number] Additional Instructions: You were evaluated in the emergency room for asthma exacerbation. Your chest x- ray is negative for any acute findings. You were noted to have a possible lung nodule on the right side of your chest, we highly recommend you follow-up with your primary care doctor for this and they can do a CT as an outpatient. Use the prescribed medications as ordered. Scripts Guaifenesin/Hydrocodone (Obredon 2.5-200 mg/5 ml Soln) 118 Ml Solution 5 ML PO Q6HRS, #80 MISC Prov: LANDEN MONTELONGO APRN 05/09/21 Albuterol Sulfate (Proair Hfa) 8.5 Gm Hfa.aer.ad 2 PUFF IH PRN Q4-6HRS PRN for wheezing for 21 Days, #1 INHALER 0 Refills Prov: LANDEN MONTELONGO APRN 05/09/21 Benzonatate (BENZONATATE) 100 Mg Capsule 1 CAP PO TID, #30 CAP Prov: LANDEN MONTELONGO APRN 05/09/21 Prednisone (PREDNISONE) 50 Mg Tablet 1 TAB PO DAILY, #4 TAB Prov: LANDEN MONTELONGO APRN 05/09/21 LANDEN MONTELONGO APRN May 08, 2021 22:50 ESPERANZA ROGERS DO May 10, 2021 03:36
--- NOTE | 2021-05-08 23:34 | RAD ---
EXAM: XR CHEST 1V 05/08/2021 11:03 PM CLINICAL INDICATION: Cough COMPARISON: Chest radiograph 06/18/2016 TECHNIQUE: AP upright view of the chest FINDINGS: The heart is normal in size. Lungs are well-expanded. There is a possible 1.7 cm right sarath hilar nodule versus prominent vessel in the right hilum. The lungs are otherwise clear. No pleural ef fusion or pneumothorax. No acute osseous abnormality. IMPRESSION: 1. No evidence of pneumonia. 2. Possible 1.7 cm nodule versus prominent vessel in the right hilum. CT could be obtained to further evaluate if indicated. Electronically signed by: Kimberly Johnson MD (05/08/2021 11:32 PM) [facility]
[2021-05-09] MEDS ORDERED: BENZ-8 PO (00:03)
[2021-05-09] MEDS ORDERED: ALBU2.5V8 IH (00:03)
[2021-05-09] MEDS ORDERED: GUAI118L13 PO (00:03)
[2021-05-09] MEDS ORDERED: PRED50TA PO (00:03)
[2021-05-09] MEDS ORDERED: GUAI118S65 PO (00:06)
[2021-05-09 00:13] VITALS: BP 127/68
== END 2021-05-09 00:26 | disposition home or self-care (01) ==
LOC: ER 21:03
DX: J45.21 Mild intermittent asthma with (acute) exacerbation (principal); E11.9 Type 2 diabetes mellitus without complications; E03.9 Hypothyroidism, unspecified
CPT/HCPCS: 71045; 99285; J7512

== ENCOUNTER → 2021-10-26 | Outpatient (CLI) | payer OTHER ==
[~2021-10-26] MED LIST changes: +ALBU2.5V8 IH; +BENZ-8 PO; +GUAI118L13 PO; +GUAI118S65 PO; -OMEP20TA8 PO; +OMEP20TA91 PO
--- NOTE | 2021-10-26 16:47 | RAD ---
DIAGNOSTIC BILATERAL BREAST MAMMOGRAM AND BILATERAL BREAST ULTRASOUND TECHNIQUE: Bilateral 2-D digital mammography in routine CC and MLO projections. Additional full field left ML and spot compression left CC and MLO views were obtained. Grayscale and color doppler ultras ound of the bilateral breasts. INDICATION: Left breast pain. Due for bilateral mammography. COMPARISON: None available. Patient unsure when and where. FINDINGS: Breast Density: Category C: The breast tissue is heterogeneously dense, which could obscure detection of small masses. There are circumscribed asymmetry is identified in the right breast 8:00 position approximately 8 cm from the nipple and left breast 7:00 position approximately 11 cm from the nipple. No suspicious calc ifications or architectural distortion. In the right breast 8:00 position 8 cm from the nipple there is a circumscribed 6 x 6 x 6 mm nearly a nechoic cystic lesion with an internal septation which likely represents a complicated cyst. In the r ight breast o'clock radial, 11 cm from the nipple there is an ovoid 6 mm anechoic cyst. Normal bilate ral axilla. No abnormalities identified in the area of pain of the left breast. IMPRESSION: 1. Probably benign right breast complicated cyst. No evidence of malignancy in the left breast. ASSESSMENT: BI-RADS 3: Probably Benign. RECOMMENDATION: Short interval follow-up 6 follow-up right breast ultrasound. Your patient's mammogram demonstrates that she has dense breast tissue (breast density category C or D), which could hide abnormalities, and if she has other risk factors for breast cancer that have bee n identified, she might benefit from supplemental screening tests that may be suggested by you as her ordering physician. Dense breast tissue, in and of itself, is a relatively common condition. Therefo re, this information is not provided to cause undue concern, but rather to raise your awareness and t o promote discussion with your patient regarding the presence of other risk factors, in addition to d ense breast tissue. The facility will notify the patient of the results via mail. Patient information will be entered int o the mammography reminder system with a target recall date for the next mammogram. A reminder letter will be generated by the facility. Electronically signed by: Soto Ruiz MD (10/26/2021 4:45 PM) [id number]
== END ==
LOC: MAMMO 12:35
PROVIDERS: ATTEND Nurse Practitioner
DX: N60.01 Solitary cyst of right breast (principal); N64.59 Other signs and symptoms in breast
CPT/HCPCS: 77066; 76641-50